=== PATIENT | female | born 1970 | race Caucasian/White ===

== ENCOUNTER 2016-07-28 15:07 | Emergency (ER) | payer OTHER ==
[~2016-07-28] VITALS: Ht 165.1 cm; Wt 70.3 kg
--- NOTE | 2016-07-28 15:53 | ED CARDIAC/CP/PALPITATIONS ---
History of Present Illness General Chief Complaint: Chest Pain Stated Complaint: CP;SOB Source: patient Exam Limitations: no limitations Vital Signs & Intake/Output Vital Signs & Intake/Output Vital Signs Date Time Temp Pulse Resp B/P Pulse O2 O2 Flow FiO2 Ox Delivery Rate 07/28 1704 97.1 64 16 147/76 100 Room Air 07/28 1615 Room Air 07/28 1539 96.8 70 16 165/83 99 Room Air Allergies Coded Allergies: Fish Containing Products (ITCHY THROAT 07/28/16) siri (ITCHY 07/28/16) nut - unspecified (ALLERGY TESTED POSITIVE 07/28/16) peach (ITCHY 07/28/16) pineapple (ITCHY 07/28/16) shellfish derived (ITCHY THROAT 07/28/16) strawberry (ITCHY THROAT 07/28/16) Reconcile Medications Albuterol Sulfate (Ventolin Hfa) 90 MCG HFA.AER.AD 2 PUF INH PRN ASTHMA ( Reported) Fluticasone/Salmeterol (Advair 500-50 Diskus) 500 MCG-50 MCG/DOSE BLST.W.DEV 1 PUF INH BID ASTHMA (Reported) Lorazepam 0.5 MG TABLET 1 TAB PO PRN ANXIETY (Reported) Norgestimate-Ethinyl Estradiol (Tri-Previfem Tablet) [id number] 28 TABLET 1 TAB PO DAILY CONTROL (Reported) Triage Note: RECEIVED 46 YO FEMALE WITH HX OF ASTHMA AND ANXIETY, C/O TIGHTNESS IN CHEST AND FEELS LIKE SHE IS UNABLE TO TAKE DEEP BREATH X ONE WEEK. EKG DONE PROIR TO TRIAGE. LUNGS CTA, O2 SATS 99-100%. CM-NSR Triage Nurses Notes Reviewed? yes HPI: Patient is a 46 year old female with past medical history of asthma and anxiety presents complaining of 1 week of dyspnea, chest tightness and palpitations. Symptoms continuous, waxing and waning at times worsen with exertion. Patient reports chest discomfort is currently mild. Patient has been using her advair and albuterol inhaler with no improvement. Patient saw her primary care PA 2 days ago. Significant stress recently, patient concerned that her symptoms may be anxiety related, but was concerned due to the duration of her symptoms. Patient's paternal grandfather and paternal aunt had PR's in their 50's. Patient takes oral contraceptive pills, has been on for approximately 30 years. Denies lower extremity pain, lower extremity swelling, wheezing, cough, fevers, chills. (REENA ALDANA) Past History Travel History Traveled to [place] past 21 day No Medical History Any Pertinent Medical History? 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 Yes (REENA ALDANA) Review of Systems Review of Systems Constitutional: Denies: chills, fever. EENTM: Reports: no symptoms. Respiratory: Reports: short of breath. Denies: cough. Cardiovascular: Reports: see HPI. GI: Denies: abdominal pain. Musculoskeletal: Reports: no symptoms. Skin: Reports: no symptoms. Neurological/Psychological: Reports: anxiety. Hematologic/Endocrine: Reports: no symptoms. Immunologic/Allergic: Reports: no symptoms. (REENA ALDANA) Physical Exam Physical Exam General Appearance: well developed/nourished, alert, awake, anxious Head: atraumatic, normal appearance Eyes: Bilateral: normal appearance, PERRL, EOMI. Ears, Nose, Throat: normal pharynx, normal ENT inspection, hearing grossly normal Neck: normal inspection, supple, full range of motion Respiratory: normal breath sounds, chest non-tender, no respiratory distress, lungs clear Cardiovascular: regular rate/rhythm, 2/6 systolic murmur Peripheral Pulses: 2+ radial (R), 2+ radial (L), 2+ dorsalis pedis (R), 2+ dorsalis pedis (L) Gastrointestinal: soft, non-tender Back: normal inspection, normal range of motion Extremities: normal inspection, normal capillary refill, normal range of motion, no edema, no calf tenderness Neurologic/Psych: no motor/sensory deficits, awake, alert, oriented x 3, normal gait, normal mood/affect Skin: intact, normal color, warm/dry Lymphatic: no anterior cervical steve Core Measures ACS in differential dx? Yes ASA ordered for poss ACS? No-ACS ruled out Severe Sepsis Present: No Septic Shock Present: No (REENA ALDANA) Progress Differential Diagnosis: AMI, aortic dissection, atrial fibrillation, CHF/pulm edema, costochondritis, hyperventilation, musculoskeletal pain, pericarditis, pneumonia, pulmonary embolism, unstable angina, V-fib/V-Tach Plan of Care: Orders Procedure Date/time Status Telemetry/Pin Machine Operator 07/28 1547 Active TROPONIN LEVEL 07/28 1547 Complete D-DIMER 07/28 1547 Complete COMPREHENSIVE METABOLIC PANEL 07/28 1547 Complete CBC WITHOUT DIFFERENTIAL 07/28 1547 Complete EKG 07/28 1508 Active Laboratory Tests 07/28/16 1605: Anion Gap 10, Estimated GFR > 60, BUN/Creatinine Ratio 15.0, Glucose 93, Calcium 9.2, Total Bilirubin 0.3, AST 19, ALT 21, Alkaline Phosphatase 51, Troponin I < 0.01, Total Protein 7.2, Albumin 4.3, Globulin 2.9, Albumin/Globulin Ratio 1.5, D-Dimer < 200, CBC w Diff NO MAN DIFF REQ, RBC 4.65, MCV 88.8, MCH 29.7, RDW 12.9, MPV 9.0, Gran % 74.8, Lymphocytes % 19.3 L, Monocytes % 4.7, Eosinophils % 0.9, Basophils % 0.3, Absolute Granulocytes 5.7, Absolute Lymphocytes 1.5, Absolute Monocytes 0.4, Absolute Eosinophils 0.1, Absolute Basophils 0, PUBS MCHC 33.5 1710: Results of labs discussed with patient. No significant arrhythmias seen on rn cardiac. Symptoms continuous x 1 week with no acute ekg changes and troponin negative. D-dimer negative. Pulses equal, lungs clear. Patient appears stable for discharge with close outpatient follow up. (REENA ALDANA) Initial ED EKG: normal axis, normal intervals, normal p-waves, normal QRS complex, normal sinus rhythm, no ST T wave changes Rhythm Strip: normal sinus rhythm (REENA ALDANA) Departure Departure Time of Disposition: 1712 Disposition: HOME OR SELF CARE Condition: Stable Clinical Impression Primary Impression: Chest pain Referrals: KAROLINA BARRAZA (PCP/Family) Additional Instructions: Follow up with Karolina Jacob this week for further evaluation. Call tomorrow morning for appointment. Return to the ER if worsening of symptoms. Departure Forms: Customer Survey General Discharge Information (REENA ALDANA) PA/ADMINISTRATIVE TECHNICIAN Co-Sign Statement Statement: ED Attending supervision documentation- [] I saw and evaluated the patient. I have also reviewed all the pertinent lab results and diagnostic results. I agree with the findings and the plan of care as documented in the PA's/ADMINISTRATIVE TECHNICIAN's documentation. [X] I have reviewed the ED Record and agree with the PA's/ADMINISTRATIVE TECHNICIAN's documentation. [] Additions or exceptions (if any) to the PAs/ADMINISTRATIVE TECHNICIAN's note and plan are summarized below: [] (CARSON MINOR,ART [place]) Critical Care Note Critical Care Note Critical Care Time: non-applicable (REENA ALDANA)
[2016-07-28 16:11] LABS: ABSOLUTE BASOPHIL COUNT 0 /CUMM (0.0-0.2); ABSOLUTE EOSINOPHIL COUNT 0.1 /CUMM (0.0-0.7); ABSOLUTE GRANULOCYTE CT 5.7 /CUMM (1.4-6.5); ABSOLUTE LYMPH COUNT 1.5 /CUMM (1.2-3.4); ABSOLUTE MONOCYTE COUNT 0.4 /CUMM (0.10-0.60); BASOPHIL % 0.3 % (0.0-2.0); EOSINOPHIL % 0.9 % (0-5); GRANULOCYTE % 74.8 % (42.2-75.2); HEMATOCRIT 41.3 % (37-47); MEAN CORPUSCULAR HGB 29.7 PG (27.0-31.0); MEAN CORPUSCULAR HGB CONC 33.5 G/DL (33.0-37.0); MEAN CORPUSCULAR VOLUME 88.8 FL (81.0-99.0); PLATELET COUNT 252 /CUMM (130-400); RBC DISTRIBUTION WIDTH 12.9 % (11.5-14.5); RED BLOOD CELL CT 4.65 /CUMM (4.20-5.40); WHITE BLOOD CELL COUNT 7.7 /CUMM (4.8-10.8)
[2016-07-28] MEDS ORDERED: VENTOLIN HFA18 GM INH (16:52)
[2016-07-28] MEDS ORDERED: ADVAIR 500-501 EACH INH (16:52)
[2016-07-28] MEDS ORDERED: TRI-PREVIFEM T1 EACH PO (16:52)
[2016-07-28] MEDS ORDERED: LORAZEPAM0.5 M1 PO (16:53)
[2016-07-28 17:04] VITALS: BP 147/76
== END 2016-07-28 17:18 ==
LOC: ERH 15:07
PROVIDERS: Physician Assistant
DX: R07.9 Chest pain, unspecified (principal)
CPT/HCPCS: 93005; 93010